=== PATIENT | female | born 1945 | race Caucasian/White ===

== ENCOUNTER → 2024-08-22 11:26 | Outpatient (CLI) | payer MEDICARE, OTHER, SELFPAY | LOC: LAB 11:27 | PROVIDERS: Family Provider Family Medicine Geriatric Medicine; PCP Family Medicine; Referring Provider Obstetrics & Gynecology; Visit Provider Obstetrics & Gynecology | DX: D49.59 Neoplasm of unspecified behavior of other genitourinary organ (principal) | CPT/HCPCS: 36415; 86304; 86305 ==